=== PATIENT | female | born 1975 ===

== ENCOUNTER → 2024-04-23 10:22 | Outpatient (REF) | payer OTHER, SELFPAY | LOC: HWRAD 10:22 | PROVIDERS: ATTENDING PHYSICIAN Nurse Practitioner Adult Health; FAMILY PHYSICIAN Family Medicine | DX: N93.9 Abnormal uterine and vaginal bleeding, unspecified (principal); D25.9 Leiomyoma of uterus, unspecified | CPT/HCPCS: 76830; 76856 ==

== ENCOUNTER → 2024-04-29 08:46 | Outpatient (REF) | payer OTHER, SELFPAY | LOC: PAVMRI 08:46 | PROVIDERS: ATTENDING PHYSICIAN Nurse Practitioner Adult Health; FAMILY PHYSICIAN Family Medicine | DX: N39.9 Disorder of urinary system, unspecified (principal); D25.9 Leiomyoma of uterus, unspecified; N81.4 Uterovaginal prolapse, unspecified | CPT/HCPCS: 72197; A9575 ==

== ENCOUNTER 2024-05-31 06:13 | Day surgery (SDC) | payer OTHER, SELFPAY ==
[2024-05-31] VITALS (7 sets, daily range): BP systolic 113–128; BP diastolic 75–99; BMI 19.6
[2024-05-31] MEDS: VIBRAMYCIN 260 MG IV (09:58)
[2024-05-31] MEDS: NORMOSOL-R/PLASMALYTE-A 1000 IV (10:01)
[2024-05-31] MEDS: TYLENOL 500 MG PO (10:02)
== END 2024-05-31 13:35 | disposition home or self-care (01) ==
LOC: SDS 06:13
PROVIDERS: ATTENDING PHYSICIAN Obstetrics & Gynecology Gynecology
DX: D25.0 Submucous leiomyoma of uterus (principal); N93.9 Abnormal uterine and vaginal bleeding, unspecified
CPT/HCPCS: 58561; 88305; 86850; 86900; 86901

== ENCOUNTER → 2024-08-09 12:30 | Outpatient (REF) | payer OTHER, SELFPAY | LOC: CLAB 12:30 | PROVIDERS: ATTENDING PHYSICIAN Obstetrics & Gynecology Gynecology | DX: D35.9 Benign neoplasm of endocrine gland, unspecified (principal); N39.9 Disorder of urinary system, unspecified | CPT/HCPCS: 88305 ==